=== PATIENT | female | born 1955 | race Caucasian/White ===

== ENCOUNTER 2023-10-22 14:35 | Emergency (ER) | payer BC, MEDICARE ==
[2023-10-22 15:08] LABS: BILIRUBIN,URINE NEGATIVE (NEGATIVE); GLUCOSE, URINE (UA) NEGATIVE (NEGATIVE); KETONES,URINE (UA) 15 mg/dL (NEGATIVE); LEUKOCYTE ESTERASE, URINE LARGE (NEGATIVE); NITRITE,URINE NEGATIVE (NEGATIVE); OCCULT BLOOD,URINE NEGATIVE (NEGATIVE); PROTEIN,URINE TRACE mg/dL (NEGATIVE); UROBILINOGEN,URINE 0.2 (NORMAL) E.U./dL (NORMAL)
--- NOTE | 2023-10-22 15:08 | ED Physician Documentation ---
History of Present Illness - Stated complaint Stated Complaint: GEN WEAKNESS - Chief complaint Chief Complaint: General - Additonal information Additional information: 68-year-old female presents emergency department for evaluation of 5 days feeling weak, tired and fatigued. She states that for the last 4 days she has been having foul-smelling urine but no dave dysuria urgency or frequency. She has woken up each the last 3 nights drenched in sweat. She has a mild dry cough. States she has had fevers up to 101. Denies chest pain, shortness of air, abdominal pain, nausea, vomiting or flank pain. At 68 years of age she takes no prescribed medications. Review of Systems Constitutional: reports: Fever, Fatigue, Sweats Cardiac: denies: Chest pain / pressure, Pedal edema Respiratory: reports: Cough. denies: Dyspnea GI: denies: Abdominal Pain : reports: Other (foul smell to urine) Skin: reports: Reviewed and negative Musculoskeletal: reports: Reviewed and negative Neurologic: reports: Reviewed and negative PD PAST MEDICAL HISTORY - Past Medical History Past Medical History: No Cardiovascular: None Respiratory: None Neuro: None Endocrine/Autoimmune: None GI: None TUBULAR RIVETER: None : None HEENT: None Psych: None Musculoskeletal: None Derm: None - Past Surgical History Past Surgical History: Yes Ortho: Other - Present Medications Home Medications: Ambulatory Orders Medication Instructions Recorded Confirmed Amox/Clav 875/125 [Augmentin] 1 each PO Q12H #14 tablet 10/22/23 Azithromycin [Zithromax] 0 mg PO DAILY #6 tablet 10/22/23 - Allergies Allergies/Adverse Reactions: Allergies Allergy/AdvReac Type Severity Reaction Status Date / Time No Known Drug Allergies Allergy Verified 10/22/23 14:46 - Social History Does the pt smoke?: No Smoking Status: Never smoker Does the pt drink ETOH?: No Does the pt have substance abuse?: No - Immunizations Immunizations are current?: Yes - POLST Patient has POLST: No PD ED PE NORMAL - General General: Alert and oriented X 3, No acute distress, Well developed/nourished - HEENT HEENT: Atraumatic, Moist mucous membranes - Neck Neck: Supple, no meningeal sign, No adenopathy - Cardiac Cardiac: RRR, No murmur - Respiratory Respiratory: No respiratory distress. No: Clear bilaterally (faint expiratory wheeze) - Abdomen Abdomen: Normal bowel sounds, Soft, Non tender, Non distended - Back Back: No CVA TTP - Derm Derm: Normal color - Extremities Extremities: No deformity - Neuro Neuro: Alert and oriented X 3, straightener hand 2-12 intact Eye Opening: Spontaneous Motor: Obeys Commands Verbal: Oriented GCS Score: 15 Results - Vitals Vitals: Vital Signs - 24 hr 10/22/23 14:37 Temperature 37.7 C Heart Rate 106 H Respiratory 18 Rate Blood Pressure 142/76 H O2 Saturation 97 Oxygen O2 Source Room air - Labs Labs: Laboratory Tests 10/22/23 10/22/23 10/22/23 14:30 15:13 15:13 WBC 10.3 RBC 4.31 Hgb 12.0 Hct 37.9 MCV 87.9 MCH 27.8 MCHC 31.7 L RDW 12.0 Plt Count 423 MPV 8.2 Neut # (Auto) 7.4 H Lymph # (Auto) 1.4 L [place] # (Auto) 1.4 H Eos # (Auto) 0.0 Baso # (Auto) 0.0 Absolute Nucleated RBC 0.00 Nucleated RBC % 0.0 Sodium 133 L Potassium 4.7 H Chloride 96 L Carbon Dioxide 30 Anion Gap 7.0 BUN 14 Creatinine 0.7 Estimated GFR (MDRD) 83 L Glucose 115 H Calcium 10.2 Total Bilirubin 0.3 AST 23 ALT 25 Alkaline Phosphatase 115 Total Protein 7.1 Albumin 3.9 Globulin 3.2 Albumin/Globulin Ratio 1.2 Lipase 13 Urine Color YELLOW Urine Clarity HAZY Urine pH 6.0 Ur Specific Page 1.025 Urine Protein TRACE Urine Glucose (UA) NEGATIVE Urine Ketones 15 H Urine Occult Blood NEGATIVE Urine Nitrite NEGATIVE Urine Bilirubin NEGATIVE Urine Urobilinogen 0.2 (NORMAL) Ur Leukocyte Esterase LARGE H Urine RBC 0-5 Urine WBC >25 H Ur Squamous Epith Cells FEW Squamous Urine Bacteria Few Ur Microscopic Review INDICATED Urine Culture Comments INDICATED PD Medical Decision Making - ED course Complexity details: reviewed results, re-evaluated patient, considered differential, d/w patient ED course: 68-year-old female presents emergency department for evaluation of 5 days fatigue, night sweats and foul-smelling urine. She takes no prescribed medications and describes herself is extremely healthy. On presentation to the emergency department she was afebrile but had mild elevation in heart rate of 106. Normotensive. Saturations were 97% on room air. Cardiopulmonary auscultation revealed some coarse rhonchi in the left lobe. Urinalysis was consistent with acute cystitis. However her CBC and electrolytes were without acute worrisome abnormalities. A chest x-ray revealed a left middle lobe pneumonia. Clinically the patient is well-appearing and does not require hospitalization for treatment of either the pneumonia or the UTI. Her PSI score is 60 owing for age only making her appropriate for outpatient treatment. Given the lack of abdominal tenderness or flank pain I have lower suspicion for ascending infection. Patient will be started on azithromycin and Augmentin which I feel would be adequate coverage for both. She is advised to follow closely with her primary care doctor to have her chest x-ray repeated in several weeks to ensure that the pneumonia resolves and that she would not require imaging to rule out neoplastic disease. I discussed the plan with the patient she is comfortable with discharge home. The usual emergent return precautions were discussed for worsening symptoms. Departure - Departure Disposition: Home, Self Care Clinical Impression: Acute cystitis Qualifiers: Hematuria presence: without hematuria Qualified Code(s): N30.00 - Acute cystitis without hematuria CAP (community acquired pneumonia) Qualifiers: Laterality: left Lung location: unspecified part of lung Qualified Code(s): J18.9 - Pneumonia, unspecified organism Condition: Stable Record reviewed to determine appropriate education?: Yes Instructions: Pneumonia Dc, ED UTI Cystitis Female Prescriptions: Amox/Clav 875/125 [Augmentin] 1 each PO Q12H #14 tablet Azithromycin [Zithromax] 0 mg PO DAILY #6 tablet Comments: You have not felt well for about the last 5 days. Your chest x-ray shows that you have a left lung pneumonia. And your urine also shows signs of urinary tract infection. In general over the next several days I want you to drink lots of water and stay well-hydrated. I have sent 2 prescriptions 1 called Augmentin which she will take twice daily for the next week as well as another antibiotic called azithromycin which she will take once a day for the next 5 days. These have been sent to the [facility] in [place]. With the initiation of antibiotics I would expect improved symptoms over the next 24 to 48 hours. If not improving, you have worsening fevers difficulty breathing severe abdominal pain or vomiting then please return immediately to the ER. It is critical that you follow closely with your primary care doctor to discuss this ED visit. You should have your chest x-ray repeated in several weeks time to ensure full resolution of the x-ray finding as we cannot always exclude underlying neoplasm as a cause of this x-ray finding. Forms: PCP List
[2023-10-22 15:17] LABS: BASOPHILS % (AUTO) 0.3 %; EOSINOPHILS % (AUTO) 0.1 %; HCT - HEMATOCRIT 37.9 % (37.0-47.0); LYMPHOCYTES # (AUTO) 1.4 10^3/uL (1.5-3.5); LYMPHOCYTES % (AUTO) 13.4 %; MEAN CORPUSCULAR HEMOGLOBIN 27.8 pg (27.0-31.0); MEAN CORPUSCULAR HGB CONC 31.7 g/dL (32.0-36.0); MEAN CORPUSCULAR VOLUME 87.9 fL (81.0-99.0); MEAN PLATELET VOLUME 8.2 fL (7.9-10.8); MONOCYTES # (AUTO) 1.4 10^3/uL (0.0-1.0); MONOCYTES % (AUTO) 13.7 %; NEUTROPHILS # (AUTO) 7.4 10^3/uL (1.5-6.6); PLT - PLATELET COUNT 423 10^3/uL (130-450); RED BLOOD COUNT 4.31 10^6/uL (4.20-5.40); WHITE BLOOD COUNT 10.3 x10^3/uL (4.8-10.8)
[2023-10-22 15:28] LABS: CLARITY,URINE HAZY (CLEAR)
[2023-10-22 15:29] LABS: BACTERIA,URINE Few /HPF (None Seen); RBC,URINE 0-5 /HPF (0-5); SQUAMOUS EPITHELIAL CELL,UR FEW Squamous (<= Few); WBC,URINE >25 /HPF (0-5)
--- NOTE | 2023-10-22 15:32 | XRAY Report ---
PROCEDURE: Chest 1 View X-Ray INDICATIONS: cough, wheeze TECHNIQUE: One view of the chest was acquired. COMPARISON: None. FINDINGS: Surgical changes and devices: None. Lungs and pleura: Focal airspace opacities are present within the left midlung. Right lung is clear. No pleural effusion or pneumothorax. Mediastinum: Mediastinal contours appear normal. Heart size is normal. Bones and chest wall: No suspicious bony lesions. Overlying soft tissues appear unremarkable. IMPRESSION: Left lobar pneumonia. Lateral view could be used if further localization is warranted. Short interval follow-up is recommended to ensure resolution of this finding and exclude underlying neoplasm. Reviewed by: Naomi Valerio MD on 10/22/2023 3:31 PM PST Approved by: Naomi Valerio MD on 10/22/2023 3:31 PM [facility] Station ID: [id number]
[2023-10-22 15:36] LABS: ALBUMIN 3.9 g/dL (3.2-5.5); ALBUMIN/GLOBULIN RATIO 1.2 (1.0-2.2); BILIRUBIN,TOTAL 0.3 mg/dL (0.2-1.0); CALCIUM 10.2 mg/dL (8.5-10.3); CREATININE 0.7 mg/dL (0.6-1.3); POTASSIUM 4.7 mmol/L (3.5-4.5); TOTAL PROTEIN 7.1 g/dL (6.4-8.9)
[2023-10-22] MEDS ORDERED: cephALEXin 250 MG CAPSULE PO STA (15:46)
[2023-10-22] MEDS ORDERED: AMOX/CLAV 875 MG/125 MG TABLET PO STA (15:47)
[2023-10-22] MEDS ORDERED: AZITHROMYCIN 250 MG TABLET PO STA (15:48)
[2023-10-22 16:23] VITALS: BP 134/67; O2SAT 99
== END 2023-10-22 16:16 | disposition home or self-care (01) ==
LOC: ED 14:35
DX: N30.00 Acute cystitis without hematuria (principal); J18.9 Pneumonia, unspecified organism
CPT/HCPCS: 36415; 71045; 80053; 81001; 83690; 85025; 87086; 99284; A9270; 81003

== ENCOUNTER 2023-12-03 19:39 | Emergency (ER) | payer MEDICARE ==
[2023-12-03 20:28] LABS: BASOPHILS % (AUTO) 0.4 %; EOSINOPHILS # (AUTO) 0.1 10^3/uL (0.0-0.7); EOSINOPHILS % (AUTO) 0.7 %; HGB - HEMOGLOBIN 13.5 g/dL (12.0-16.0); LYMPHOCYTES # (AUTO) 1.2 10^3/uL (1.5-3.5); MEAN CORPUSCULAR HEMOGLOBIN 27.3 pg (27.0-31.0); MEAN CORPUSCULAR HGB CONC 32.1 g/dL (32.0-36.0); MEAN CORPUSCULAR VOLUME 84.8 fL (81.0-99.0); MEAN PLATELET VOLUME 8.4 fL (7.9-10.8); MONOCYTES # (AUTO) 0.8 10^3/uL (0.0-1.0); MONOCYTES % (AUTO) 10.8 %; NEUTROPHILS # (AUTO) 5.5 10^3/uL (1.5-6.6); NEUTROPHILS % (AUTO) 71.7 %; PLT - PLATELET COUNT 301 10^3/uL (130-450); RED BLOOD COUNT 4.95 10^6/uL (4.20-5.40); RED CELL DISTRIBUTION WIDTH 12.9 % (12.0-15.0); WHITE BLOOD COUNT 7.7 x10^3/uL (4.8-10.8)
[2023-12-03 20:46] LABS: ALBUMIN 4.2 g/dL (3.2-5.5); ALBUMIN/GLOBULIN RATIO 1.4 (1.0-2.2); BILIRUBIN,TOTAL 0.4 mg/dL (0.2-1.0); CALCIUM 9.7 mg/dL (8.5-10.3); CREATININE 0.6 mg/dL (0.6-1.3); POTASSIUM 3.5 mmol/L (3.5-4.5); TOTAL PROTEIN 7.3 g/dL (6.4-8.9)
[2023-12-03 20:52] LABS: BILIRUBIN,URINE NEGATIVE (NEGATIVE); GLUCOSE, URINE (UA) NEGATIVE (NEGATIVE); KETONES,URINE (UA) NEGATIVE (NEGATIVE); LEUKOCYTE ESTERASE, URINE NEGATIVE (NEGATIVE); NITRITE,URINE NEGATIVE (NEGATIVE); OCCULT BLOOD,URINE NEGATIVE (NEGATIVE); PH,URINE 5.5 PH (5.0-7.5); PROTEIN,URINE TRACE mg/dL (NEGATIVE); UROBILINOGEN,URINE 0.2 (NORMAL) E.U./dL (NORMAL)
[2023-12-03 20:59] LABS: CLARITY,URINE CLEAR (CLEAR)
--- NOTE | 2023-12-03 21:27 | ED Physician Documentation ---
History of Present Illness - Stated complaint Stated Complaint: ABD PX,GI,BLOATED - Chief complaint Chief Complaint: Abd Pain - History obtained from History obtained from: Patient, Family () - Additonal information Additional information: 68yF with pmh recent pneumonia s/p 3 rounds of antibiotics, presents with abdominal bloating and cramping pain X 2 weeks, worsening over the past 3 days, worse after eating, constant, associated with occasional nbnb n/v. patient states sometimes foods goes down and then comes right back up. denies fever, diarrhea, urinary symptoms back pain. she has tried probiotics, tums, antacids without relief PD PAST MEDICAL HISTORY - Past Medical History Cardiovascular: None Respiratory: None Neuro: None Endocrine/Autoimmune: None GI: None [employer]: None : None HEENT: None Psych: None Musculoskeletal: None Derm: None - Past Surgical History Past Surgical History: Yes Ortho: Other - Present Medications Home Medications: Ambulatory Orders Medication Instructions Recorded Confirmed Amox/Clav 875/125 [Augmentin] 1 each PO Q12H #14 tablet 10/22/23 Ondansetron Odt [Zofran Odt] 4 mg TL Q6H PRN #10 tablet 12/03/23 levoFLOXacin [Levofloxacin] 750 mg PO BID 12/03/23 - Allergies Allergies/Adverse Reactions: Allergies Allergy/AdvReac Type Severity Reaction Status Date / Time No Known Drug Allergies Allergy Verified 12/03/23 19:59 - Social History Does the pt smoke?: No Smoking Status: Never smoker Does the pt drink ETOH?: No Does the pt have substance abuse?: No - Immunizations Immunizations are current?: Yes - POLST Patient has POLST: No PD ED PE NORMAL - Vitals Vital signs reviewed: Yes - General General: Alert and oriented X 3, No acute distress, Well developed/nourished - HEENT HEENT: Atraumatic, PERRL, EOMI - Neck Neck: Supple, no meningeal sign - Cardiac Cardiac: RRR - Respiratory Respiratory: No respiratory distress, Clear bilaterally - Abdomen Abdomen: Non tender, Non distended - Back Back: No CVA TTP - Derm Derm: Normal color, Warm and dry - Extremities Extremities: No deformity - Neuro Neuro: Alert and oriented X 3 - Psych Psych: Normal mood, Normal affect Results - Vitals Vitals: Vital Signs - 24 hr 12/03/23 12/03/23 19:50 20:14 Temperature 36.1 C L Heart Rate 94 Respiratory 19 17 Rate Blood Pressure 122/73 O2 Saturation 99 Oxygen O2 Source Room air - Labs Labs: Laboratory Tests 12/03/23 12/03/23 12/03/23 20:23 20:23 20:25 WBC 7.7 RBC 4.95 Hgb 13.5 Hct 42.0 MCV 84.8 MCH 27.3 MCHC 32.1 RDW 12.9 Plt Count 301 MPV 8.4 Neut # (Auto) 5.5 Lymph # (Auto) 1.2 L [place] # (Auto) 0.8 Eos # (Auto) 0.1 Baso # (Auto) 0.0 Absolute Nucleated RBC 0.00 Nucleated RBC % 0.0 Sodium 135 Potassium 3.5 Chloride 99 L Carbon Dioxide 29 Anion Gap 7.0 BUN 11 Creatinine 0.6 Estimated GFR (MDRD) 99 Glucose 116 H Calcium 9.7 Total Bilirubin 0.4 AST 25 ALT 29 Alkaline Phosphatase 140 H Total Protein 7.3 Albumin 4.2 Globulin 3.1 Albumin/Globulin Ratio 1.4 Lipase 14 Urine Color YELLOW Urine Clarity CLEAR Urine pH 5.5 Ur Specific [place] >=1.030 H Urine Protein TRACE Urine Glucose (UA) NEGATIVE Urine Ketones NEGATIVE Urine Occult Blood NEGATIVE Urine Nitrite NEGATIVE Urine Bilirubin NEGATIVE Urine Urobilinogen 0.2 (NORMAL) Ur Leukocyte Esterase NEGATIVE Ur Microscopic Review NOT INDICATED Urine Culture Comments NOT INDICATED PD Medical Decision Making - ED course ED course: 68yF presents with abdominal cramping s/p multiple rounds of antibiotics for recent pneumonia. patient not displaying s/p of c diff, stating stools are well formed. labwork unremarkable and exam was benign. zofran, pepcid and gas X provided with improvement. counseling provided and plan is to pickup rx from pharmacy and f/u with pcp. return precautions given. Departure - Departure Clinical Impression: Bloating, Nausea Condition: Stable Instructions: ED Gas Bloating, ED Nausea Vomiting Prescriptions: Ondansetron Odt [Zofran Odt] 4 mg TL Q6H PRN #10 tablet PRN Reason: Nausea / Vomiting Comments: You were seen in the emergency department for abdominal pain and nausea. You received pepcid, zofran, and simethicone (generic for gas-X, available over the counter). [facility] for antinausea medicine that dissolves on the tongue. You should consider picking up some gas-X too from your local pharmacy. Please follow-up with your primary care provider and return to the emergency department if you have any new or worsening symptoms or other concerns. Forms: PCP List
[2023-12-03] MEDS: FAMOTIDINE 20 MG/2 ML VIAL IVP STA (21:42)
[2023-12-03] MEDS: SIMETHICONE CHEW 80 MG TABLET PO STA (21:42)
[2023-12-03] MEDS: ONDANSETRON 4 MG/2 ML VIAL IVP STA (21:42)
[2023-12-03 22:50] VITALS: O2SAT 100
[2023-12-03 23:25] VITALS: BP 97/76
== END 2023-12-03 23:20 | disposition home or self-care (01) ==
LOC: ED 19:39
DX: R14.0 Abdominal distension (gaseous) (principal); R11.2 Nausea with vomiting, unspecified; R10.9 Unspecified abdominal pain
CPT/HCPCS: 36415; 80053; 81003; 83690; 85025; 96374; 99283; A9270; 81001; 87086